=== PATIENT | female | born 2000 | race Caucasian/White ===

== ENCOUNTER 2020-02-13 22:00 | Observation (INO) | payer BC ==
[2020-02-13 23:00] LABS: Pregnancy Test - Urine (BHCG) Negative (Negative); Pregu Control Background? CLEAR/WHITE (CLR/WHITE); Pregu Control Bar Appear? YES (CONTROL BAR)
[2020-02-13 23:03] LABS: Bilirubin Negative (Negative); Blood, Urine Trace (Negative); Clarity Turbid (Clear); Glucose, Urine (Dipstick) Normal (Negative); Ketone, Urine 150 mg/dL (Negative); Leukocyte Negative Leu/uL (Negative); Mucous/LPF Rare LPF (<2+); Nitrite Negative (Negative); Protein, Urine (Dipstick) 30 mg/dL (Neg-Trace); Urobilinogen Normal mg/dL (Less than 2)
[2020-02-13 23:08] LABS: Bacteria/HPF 2+ HPF (None Seen)
[2020-02-13 23:59] LABS: #Basophils 0.1 thou/uL (0.0-0.2); #Monocytes 1.1 thou/uL (0.11-0.59); #Neutrophils 12.5 thou/uL (1.40-6.50); %Basophils 0.6 % (0.0-1.0); %Eosinophils 0.3 % (0.0-10.0); %Lymphocytes 12.7 % (28.0-48.0); %Monocytes 6.9 % (0.0-4.0); %Neutrophils 79.5 % (31.0-61.0); Hemoglobin 12.8 g/dL (12.0-16.0); Mean Corpuscular HGB CONC 33.7 g/dL (32.0-36.0); Mean Corpuscular Hemoglobin 31.8 pg (25.0-35.0); Mean Corpuscular Volume 94.4 fL (78.0-98.0); Mean Platelet Volume 7.5 fL (7.4-10.4); Platelet Count 259 thou/uL (130-400); RBC Distribution Width 11.9 % (11.5-14.5); Red Blood Cell (RBC) Count 4.02 mill/uL (4.00-5.20); White Blood Cell (WBC) Count 15.7 thou/uL (4.8-10.8)
[2020-02-14 00:20] LABS: ALT (SGPT) 12 U/L (8-55); AST (SGOT) 12 U/L (5-30); Albumin 4.2 g/dL (3.5-5.0); Alkaline Phosphatase 75 U/L (40-100); Anion Gap 15 mmol/L (10-20); BUN (Urea Nitrogen) 12 mg/dL (8.4-21.0); Bilirubin, Total 3.3 mg/dL (0.2-1.2); Calc. Creatinine Clearance 0 mL/min (70-130); Calcium 9.1 mg/dL (7.8-10.44); Carbon Dioxide 22 mmol/L (22-29); Chloride 101 mmol/L (98-107); Globulin 2.6 g/dL (2.4-3.5); Glucose 107 mg/dL (70-105); Lipase 10 U/L (8-78); Potassium 3.6 mmol/L (3.5-5.1); Protein, Total 6.8 g/dL (6.0-8.3); Sodium 134 mmol/L (136-145)
[2020-02-14] MEDS ORDERED: Ondansetron PF 4 MG/2 ML Vial IVP PRN (02:11)
[2020-02-14] MEDS ORDERED: Sodium Chloride 0.9% 1,000 ML IV SCH (02:15)
--- NOTE | 2020-02-14 03:28 | HP ---
CHIEF COMPLAINT: Abdominal pain. HISTORY OF PRESENT ILLNESS: This is a 19-year-old nulligravid female, who presented to the emergency department with cramping all day. She reports that after intercourse this morning, she started having lower abdominal cramping which remained about the same throughout the day. She also had several near syncopal episodes when she would stand up. When she arrived at the ER, she was tachycardic, but that resolved with 1 liter of fluid. She denies any significant abdominal pain at this point and feels that the pain has mostly resolved while in the ER. She denies any nausea, vomiting, or changes in bowel habits or trouble with urination. REVIEW OF SYSTEMS: Negative for head, eyes, ears, nose, throat, cardiovascular, respiratory, GI, , neuropsych, musculoskeletal, skin, or constitutional symptoms other than mentioned above. 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 No control. No history of ovarian cysts. Never had a . Denies history of STDs. PAST MEDICAL HISTORY: None. PAST SURGICAL HISTORY: None. MEDICATIONS: None. ALLERGIES: PHENERGAN. SOCIAL HISTORY: Positive for tobacco use. She uses nicotine cartridge that has 1500 hits and lasts for 3 days. She also admits to marijuana use, but denies other drug abuse. FAMILY HISTORY: Positive for breast cancer in a great grandmother, but otherwise negative for breast, ovary, uterine, or colon cancer. PHYSICAL EXAMINATION: VITAL SIGNS: Blood pressure 104/68, pulse 57, respiratory rate 16, temperature 98.2. GENERAL: Awake, alert, in no acute distress. HEART: Regular rate and rhythm. LUNGS: Clear to auscultation bilaterally. ABDOMEN: Flat, soft, minimally tender to palpation. No rebound. No guarding. LABORATORY STUDIES: WBC 15.7, hemoglobin 12.8, hematocrit 38.0, platelets 259,000. Chemistry unremarkable. Urine appears contaminated. test negative. IMAGING STUDIES: CT scan revealed a large amount of free fluid, but no other obvious abnormalities. Pelvic ultrasound revealed normal ovaries bilaterally with moderate amount of thick free fluid, reports not available at this time. ASSESSMENT/PLAN: A 19-year-old nulligravid female with a moderate amount of free fluid in the pelvis, likely from a ruptured hemorrhagic cyst. After reviewing the images, she does not appear to have any large cyst and the free fluid does appear more consistent with clot rather than fresh bleeding. The patient's exam is benign and her pain is improving. She will be placed on observation with a repeat hemoglobin in the morning. She will remain n.p.o. at this time and if her exam and everything remains stable, she will likely be discharged home in the morning. Job ID: [id number] MTDD
[2020-02-14 04:02] VITALS: BMI 22.3
[2020-02-14 06:22] LABS: #Basophils 0.1 thou/uL (0.0-0.2); #Eosinphils 0.1 thou/uL (0.0-0.7); #Lymphocytes 2.9 thou/uL (1.20-3.40); #Monocytes 0.9 thou/uL (0.11-0.59); #Neutrophils 8.2 thou/uL (1.40-6.50); %Basophils 0.6 % (0.0-1.0); %Eosinophils 0.5 % (0.0-10.0); %Lymphocytes 23.7 % (28.0-48.0); %Monocytes 7.8 % (0.0-4.0); %Neutrophils 67.4 % (31.0-61.0); Hemoglobin 11.1 g/dL (12.0-16.0); Mean Corpuscular HGB CONC 34.4 g/dL (32.0-36.0); Mean Corpuscular Hemoglobin 32.4 pg (25.0-35.0); Mean Corpuscular Volume 94.1 fL (78.0-98.0); Mean Platelet Volume 7.7 fL (7.4-10.4); Platelet Count 214 thou/uL (130-400); RBC Distribution Width 11.8 % (11.5-14.5); Red Blood Cell (RBC) Count 3.42 mill/uL (4.00-5.20); White Blood Cell (WBC) Count 12.1 thou/uL (4.8-10.8)
--- NOTE | 2020-02-14 07:06 | PDOC.BPN ---
- Brief Progress Note Encounter Date: 02/14/20 Encounter Time: 07:04 S: Patient doing well this morning, no major changes overnight. Has not gotten up since arrival to floor but was able to walk to ultrasound last night without feeling dizzy. O: Vital Signs - Most Recent Temp Pulse Resp BP Pulse Ox 98.0 F 68 18 114/59 L 98 02/14/20 06:11 02/14/20 06:11 02/14/20 06:11 02/14/20 06:11 02/14/20 06:11 Gen - AAO, NAD Abd - flat, soft, minimally TTP, no guarding, no rebound Labs: Repeat H/H: 11.1/32.2 A/P: 19 y/o with hemoperitoneum from presumed ruptured hemorrhagic ovarian cyst, stable. Will give regular diet this am, ibuprofen for pain control. Anticipate d/c home after breakfast if meeting milestones.
[2020-02-14] MEDS ORDERED: Ibuprofen 800 MG TAB PO SCH (07:15)
--- NOTE | 2020-02-14 07:50 | DIS ---
DATE OF ADMISSION: 02/14/2020 DATE OF DISCHARGE: 02/14/2020 DIAGNOSES: 1. Hemoperitoneum. 2. Abdominal pain. 3. Suspected ruptured hemorrhagic ovarian cyst. 4. Near syncope. PROCEDURES: 1. CT scan. 2. Transvaginal ultrasound. HOSPITAL COURSE: The patient presented to the emergency room with abdominal cramping throughout the day after intercourse. She reported several near syncopal episodes when she would stand up and so she came in to be evaluated. On CT scan, a moderate amount of fluid was noted in the abdomen, but no other focal abnormalities were seen. An ultrasound was performed, which showed normal-appearing ovaries and uterus, but again moderate free fluid that appeared heterogeneous and consistent with clot. She was tachycardic when she arrived, but that resolved with 1 L of IV fluids as a precaution. She was observed overnight with a repeat hemoglobin in the morning. Her starting hemoglobin was 12.8 and the repeat was 11.1. She was stable overnight with a benign exam. Her pain was minimal and she was meeting milestones for discharge. FOLLOWUP: Follow up with her PCP as needed. DIET: Regular. ACTIVITIES: As tolerated. MEDICATIONS: Ibuprofen as needed. INSTRUCTIONS: Call or return with significant increase in pain or if presyncopal episodes recur. Job ID: [id number]
[2020-02-14 08:04] VITALS: BP 107/57; TEMP 98.2
--- NOTE | 2020-02-14 08:50 | ULT ---
PRELIMINARY REPORT/[facility]/EMERGENCY AFTER HOURS PROCEDURE: EXAM: US Pelvis, Complete. CLINICAL HISTORY: Cramping pelvic pain, constipation, dizziness TECHNIQUE: Transvaginal and transabdominal pelvic ultrasound (complete) with image documentation. COMPARISON: CT - CT ABDOMEN PELVIS W CO - 02/14/2020 12:17 AM ECONOMIC SPECIALIST FINDINGS: ENDOMETRIUM: Normal thickness. Measures 6.8 mm UTERUS/CERVIX: Normal size and contour. No fibroid detected. Measures 7.3 x 2.8 x 4.3 cm RIGHT OVARY: Normal follicles. No adnexal mass. Normal blood flow. Measures 4.7 x 2.9 cm LEFT OVARY: Normal follicles. No adnexal mass. Normal blood flow. Measures 3.2 x 2.1 x 3.8 cm FREE FLUID: Moderate complex cul-de-sac and bilateral adnexal free fluid. IMPRESSION: Moderate complex pelvic fluid however the uterus and ovaries appear normal ELECTRONICALLY SIGNED BY: Catarino Chavez MD Feb 14, 2020 2:06:43 AM ECONOMIC SPECIALIST This report is intended for review by the ordering physician only, in accordance of law. If you recei ve this report in error, please call [facility] at [phone]. FINAL REPORT PELVIC ULTRASOUND: Endometrium upper normal thickness. Uterus unremarkable. Complex free fluid in the pelvis. Ovaries appear unremarkable. I am in agreement with the preliminary report. POS: AGW
--- NOTE | 2020-02-14 08:51 | CT ---
PRELIMINARY REPORT/[facility]/EMERGENCY AFTER HOURS PROCEDURE: EXAM: CT Abdomen and Pelvis with Intravenous Contrast CLINICAL HISTORY: Patient presents with intermittent abdominal pain that began approximately 18 hours ago. She describe s it as a cramping. She has had no nausea or vomiting. She reports dysuria that began today. She is h ad no diarrhea or constipation. Patient also reports throughout the day she has had several episodes where she gets lightheaded when she stands up and her vision goes black. TECHNIQUE: Axial computed tomography images of the abdomen and pelvis with intravenous contrast. CONTRAST: With; ISOVUE 370,100mL COMPARISON: None provided. FINDINGS: LUNG BASES: Lung bases are clear. No pleural effusion. Visualized heart and pericardium appear normal. LIVER: Unremarkable. GALLBLADDER AND BILE DUCTS: Unremarkable. No calcified stone. No ductal dilation. PANCREAS: Unremarkable. SPLEEN: Unremarkable. ADRENAL GLANDS: Unremarkable. KIDNEYS, URETERS, AND BLADDER: The kidneys, ureters, and bladder appear normal. STOMACH AND BOWEL: No obstruction. No wall thickening. No CT evidence of colitis or acute diverticulitis. APPENDIX: No CT evidence for appendicitis. PERITONEUM: There is a moderate volume of ascites throughout the peritoneal cavity of increased attenuation, appr oximately 35 pounds so units. This may indicate a hemorrhagic component. The ovaries are not clearly delineated. However, there is a 15 mm density in the right adnexal region isodense with the venous blood pool and adjacent to which there is an indistinctly defined hypodense cystic focus approximate 2 cm in diameter, axial image #64 through 67/2 and sagittal image numbers 7 3 through 83/165. Considering the extensive ascites, this likely represents a hemorrhagic cyst and ma y be the source of the presumed intraperitoneal hemorrhage. LYMPH NODES: No lymphadenopathy. REPRODUCTIVE: The uterus appears normal. VASCULATURE: No aortic aneurysm. BONES: No fracture or suspicious osseous abnormality. ABDOMINAL WALL AND SOFT TISSUES: Unremarkable. IMPRESSION: 1. Moderate to large volume of abnormally dense ascites; suspected hemoperitoneum. While the exact etiology is uncertain, a hemorrhagic cyst of the right ovary is a likely source of the presumed intra peritoneal hemorrhage. No additional intra-abdominal or intrapelvic lesions are detected. ELECTRONICALLY SIGNED BY: Goyo Toure M.D. Feb 14, 2020 12:41:25 AM OFFICE ENGINEER This report is intended for review by the ordering physician only, in accordance of law. If you recei ve this report in error, please call [facility] at [phone]. FINAL REPORT CT ABDOMEN AND PELVIS: Moderate volume free fluid in the abdomen and pelvis is seen as noted on the preliminary report. The density of this free fluid is higher than expected as noted on the preliminary report. There is prominence in the right adnexa as noted in the preliminary report. Hemorrhagic ovarian cyst is a consideration as noted on the preliminary report. Ectopic sh ould be excluded with serum HCG level. I am in agreement with the preliminary report. POS: JORY
[2020-02-14 10:55] LABS: SARS-CoV-2 MS2 Positive; SARS-CoV-2 N Gene Negative; SARS-CoV-2 S Gene Negative; SARS-CoV-2 by NAA Not Detected (NotDetected); SARS-CoV-2 orf1ab Negative
[2020-02-14] MEDS ORDERED: Iopamidol-370 76% 500 ML 1 ML ONE (14:14)
--- NOTE | 2020-02-17 12:44 | EKG ---
Test Reason : Blood Pressure : / mmHG Vent. Rate : 098 BPM Atrial Rate : 098 BPM P-R Int : 116 ms QRS Dur : 070 ms QT Int : 366 ms P-R-T Axes : 066 075 047 degrees QTc Int : 467 ms Normal sinus rhythm with sinus arrhythmia Normal ECG Confirmed by JOAN MACEDO ([id number]), market editor MARCELINO HAGAN ([id number]) on 02/17/2020 12:44:00 PM Referred By: Confirmed By:JOAN MACEDO
== END 2020-02-14 08:15 | disposition home or self-care (01) ==
LOC: ERS 22:00 → 3SE 02-14 02:14
PROVIDERS: ADMIT Obstetrics & Gynecology; ATTEND Obstetrics & Gynecology
DX: K66.1 Hemoperitoneum (principal); R18.8 Other ascites; R10.30 Lower abdominal pain, unspecified; R55 Syncope and collapse; F17.290 Nicotine dependence, other tobacco product, uncomplicated; F12.10 Cannabis abuse, uncomplicated; Z88.8 Allergy status to other drugs, medicaments and biological substances; Z20.828 Contact with and (suspected) exposure to other viral communicable diseases
CPT/HCPCS: 36415; 74177; 76856; 80053; 81003; 81015; 81025; 83690; 85025; 87635; 93005; G0378; Q9967; U0003